=== PATIENT | female | born 1965 | race Caucasian/White ===

== ENCOUNTER 2020-07-25 15:38 | Emergency (ER) | payer MEDICAID, SELFPAY ==
[2020-07-25] VITALS (65 sets, daily range): BP systolic 80–102; BP diastolic 30–53; PULSE 77–117; RESP 13–22; TEMP 37.1; O2SAT 90–97
--- NOTE | 2020-07-25 15:30 | RT.EKG_ITS ---
APPROVED REPORT Exam: Resting ECG Patient Location: E HR:86 bpm ECG Measurements Heart Rate 86 AXIS MT 167 P 24 QRSd 110 QRS 47 QT 474 T 51 QTc 567 Conclusion Sinus rhythm...normal P axis, V-rate 60- 99 Prolonged QT interval...QTc >510mS
[2020-07-25] MEDS: Normal Saline 1,000 ML 1000 ML IV ×2 (15:50→16:26)
--- NOTE | 2020-07-25 16:00 | DI.CT_ITS ---
EXAM: CT CHEST/ABD/PEL WO CLINICAL HISTORY: jaundice, weakness, ?pleural effusion and ascites. TECHNIQUE: Imaging Protocol: Axial computed tomography images with coronal and sagittal reformatted images were created and reviewed CONTRAST MATERIAL: Intravenous: Omnipaque 350 Contrast volume:structured data in ml Oral: no COMPARISON: No exams were available for comparison FINDINGS: CHEST: Thyroid: Unremarkable as visualized. Tracheobronchial tree: Patent where visualized. Mediastinum and Angie: No dominant adenopathy or fluid collection. Pulmonary parenchyma: Mildly limited evaluation due to respiratory motion. No consolidation or domin ant measurable mass. There is scarring at the left upper lobe. Dependent changes are seen posterior ly. Pleura: No effusion or pneumothorax. Lymph nodes: Within normal limits. Aorta: Thoracic portion non-dilated. Heart: Normal size Bones: Unremarkable ABDOMEN: Liver: Cirrhotic changes. No gross evidence of a focal mass Gallbladder and biliary tract: Stones and sludge. No biliary dilatation. Pancreas: Normal density, no abnormal calcifications or inflammatory process. Spleen: Splenomegaly. Kidneys: Normal size, contour and axis. No radiodense stones or obstructive uropathy. No masses seen. Adrenal glands: No masses seen. Aorta: Abdominal portion non-dilated. Mural calcification. Lymph nodes: Within normal limits. PELVIS: Bladder: Rascon catheter Bowel: No obstruction or bowel wall thickening. Mild diverticulosis. Minimal stool. Peritoneal cavity: Small amount of fluid in the pelvis. Mild mesenteric edema. Bones: Within normal limits. No fracture. Reproductive organs: Within normal limits. Small amount of fluid in the left inguinal canal. Edema in the subcutaneous fat of the left gluteal region could represent posttraumatic changes. IMPRESSION: Cirrhosis. Splenomegaly. Cholelithiasis. No evidence of acute cholecystitis or biliary dilatation. Minimal amount of pelvic fluid. RADIATION DOSE DELIVERED: 2,164.48mGy.cm Total DLP DATA REPOSITORY: All CT scans at this facility are submitted to the National Radiology Data Registry (NRDR) Dose Index Registry (DIR) with the [employer] (ACR). RADIATION OPTIMIZATION: All CT scans at this facility use at least one of these dose optimization te chniques: automated exposure control; mA and/or kV adjustment per patient size (includes targeted exa ms where dose is matched to clinical indication); or iterative reconstruction.
--- NOTE | 2020-07-25 16:03 | ED.GENADUL_ITS ---
Discharge Plan Disposition Patient Disposition: [facility] Condition: Critical Discharge Details Chief Complaint: GenMedical Clinical Impression: Hypotension, Sepsis, Acute liver failure, Renal failure, Thrombocytopenia, Anemia Primary Care Provider: Ryan Lovell ED Provider: Rusty Frias Home Meds and New Rx's Prescriptions: No Action citalopram 20 mg Tablet 20 mg PO DAILY RF: 0 furosemide 40 mg Tablet 40 - 80 mg PO DAILY RF: 0 spironolactone 100 mg Tablet 100 mg PO DAILY RF: 0 Medical Decision Making 55 yo female with unknown medical history as she has never been here before comes in from home with general weakness worsening over several days per ems report from family. They denies any fevers, chills, falls. She arrives hypotensive with normal HR and normal o2 sat. She is noted to be jaundiced. She is sleeping when I enter the room she is sleeping and awakens to voice. She knows her name and thinks she is in [facility] and is unsure of year. She takes some time to answer most questions and says yes inapporpiately to certain questions. She denies any pain, vomit, fevers. no focal neuro deficits, does have mild asterixis of her extremities, suspect she has hepatic encephalothy, will obtain lab work and ammonia level to eval for this and given unclear hx and ams will obtain ct head to eval for sdh and also ct chest/abd/pelvis to evaluate for pna, pleural effusion, ascites. spoke with pt's family and state she has had a relapse in drinking alcohol, state a few but has been a week or so. I asked the pt and states hasn't drank in a few weeks and was drinking a lot but wouldn't expand on how much despite repeat questioning. awaiting labs and imaging, still hypotensive, will give another iv bolus and order zosyn pt in acute liver failure with lisa, is making urine. UA is consistnent with uti and has elevated procalcitonin and lactate. HAs cirrhosis on ct abdomen and minimal acites and unable to fine an area with ultrasound I could safely perform pericentesis. repains awake and talking protecting airway but repamined hypotensive so IV [place]orepi started. [place] [facility] [place] given acute liver failure, sepsis, and also thrombocytopenia and anemia which could be from the sepsis vs liver failure. Her ct also notes nonspecific subcutaneous edema in left gluteeal region and has no pain redness or swelling in this area so doubt infection at this time. pt's MAP 67 on 12mcg/min norepi infusion. [place] [facility] [place], Dr. Mcmahon is the accepting provider. Pt and family updated of very grim survival rate at this present time Differential Diagnosis Differential Diagnosis: hepatic encephalopathy, sbp, sdh, pna, ascites Medical Records Medical records reviewed: Yes I reviewed the patient's medical records. Imaging Data Radiologic Study: Attestation: I personally reviewed and interpreted this imaging study as follows: Imaging: CT Scan Radiologist's impression: no acute findings on ct head Radiologic Study #2: Attestation: I personally reviewed and interpreted this imaging study as follows: Imaging: CT Scan Radiologist's impression: IMPRESSION: 1. Cirrhosis and splenomegaly. 2. Cholelithiasis. 3. Mild colon wall thickening may be due to nonspecific colitis or underdistention. 4. Minimal ascites. 5. Small amount of air in the bladder may be due to prior instrumentation or gas-forming infection. 6. Subcutaneous edema in the left gluteal region of unclear etiology. Trauma or infection are possibilities. 7. Additional incidental/non-emergent findings, as above. Lab Data Lab results reviewed: Yes I reviewed the patient's lab results. ECG Data Attestation: I personally reviewed and interpreted this ECG (s) as follows: Prior ECG tracings: not available for review Interpretation: sinus rhythm rate of 86 pr [address] t wave ischemic findings HPI General Mode of arrival: EMS . Date/Time Provider Initiated Documentation: 07/25/20 15:46 . Limitations to Documentation: altered mental status . Information obtained by: EMS . History of Present Illness 55 year old F presents to the emergency department with the chief complaint of general weakness, described as moderate, and it has been constant. No relieving factors improve symptom(s), No exacerbating factors reported . Patient did receive the following treatments prior to arrival, none Related Data Home Medications Medication Instructions Recorded Confirmed citalopram 20 mg PO DAILY 07/25/20 07/25/20 furosemide 40 - 80 mg PO DAILY 07/25/20 07/25/20 spironolactone 100 mg PO DAILY 07/25/20 07/25/20 Allergies Allergy/AdvReac Type Severity Reaction Status Date / Time No Known Allergies Allergy Unverified 07/25/20 16:15 General Stated Complaint: GenMedical ION: 2 Review of Systems All systems reviewed & are unremarkable except as noted in HPI and below Constitutional Constitutional: Denies chills and Denies fever(s) Cardiovascular Cardiovascular: Denies chest pain and Denies dyspnea Respiratory Respiratory: Denies cough and Denies dyspnea Gastrointestinal Gastrointestinal: Denies abdominal pain, Denies nausea and Denies vomiting Musculoskeletal Musculoskeletal: Denies joint swelling Psychiatric Psychiatric: Denies depression [facility] Social History Smoking/Tobacco Use Status: Current-Occasional Alcohol Intake: never Exam Const General: no acute distress Orientation: other (eyes closed openes to voice) HENMT Head: normal to inspection Ears: external ears normal General nose exam: external nose normal Mouth: moist mucous membranes Eyes General: appearance normal, both eyes and all related structures Neck Neck: normal visual inspection Resp Effort & Inspection: normal respiratory effort and able to speak in complete sentences Cardio Rate: regular rate Skin General skin exam: no rashes or lesions noted Neuro General: patient alert Extrem General: normal to inspection Psych Mental Status: mental status grossly normal Course Vital Signs Vital signs: Vital Signs Temperature 37.1 C 07/25/20 15:38 Pulse 86 07/25/20 15:38 Respiratory Rate 07/25/20 15:38 Blood Pressure 80/33 L 07/25/20 15:38 Pulse Oximetry 96 07/25/20 15:38 Temperature 37.1 C 07/25/20 15:38 Temperature Source Skin 07/25/20 15:38 Pulse 86 07/25/20 15:38 Respiratory Rate 20 07/25/20 15:38 Blood Pressure 80/33 L 07/25/20 15:38 Blood Pressure Position Supine 07/25/20 15:38 Pulse Oximetry 96 07/25/20 15:38 Oxygen Delivery Method Room Air 07/25/20 15:38 Oxygen Flow Rate 0 07/25/20 15:38 Lab/Test Results Lab/Test Results: 07/25/20 15:47 Blood Blood Culture - Pending 07/25/20 15:47 Blood Blood Culture - Pending Critical Care Time Critical Care Time Critical Care Time: Yes Total Critical Care Time: 60 (minutes) Attestation: time spent reviewing lab work, frequent reassessments and hd monitoring in patient with hypotension requiring pressors and potential to deteriorate at any time
[2020-07-25 16:05] LABS: Absolute Basophil Count 0.01 10^3/uL (0.0-0.2); Absolute Eosinophil Count 0.02 10^3/uL (0.0-0.7); Absolute Lymphocyte Count 0.39 10^3/uL (1.2-3.4); Absolute Monocyte Count 0.92 10^3/uL (0.1-0.8); Absolute Neutrophil Count 8.18 10^3/uL (1.2-6.7); Basophils % 0.1; Eosinophils % 0.2; HGB 7.4 g/dL (11.2-15.7); Lymphocytes % 4.1; MCH 43.5 pg (27.0-33.0); MCHC 36.3 % (32.0-36.0); MPV 10.2 fL (8.0-11.0); Monocytes % 9.6; Nucleated RBC 0 %; RDW 17.2 % (11.7-14.6); RDW-SD 74.3 fL; WBC 9.62 10^3/uL (4.4-10.8)
[2020-07-25] MEDS: Normal Saline Flush 10 ML SYR IVP (16:10)
[2020-07-25 16:18] LABS: Bilirubin Large (Negative); Blood Large (Negative); Clarity Cloudy (Clear); Glucose 100 mg/dL (Negative); Leukocyte Esterase Large (Negative); pH 8.5 (5-8)
[2020-07-25 16:23] LABS: HCT 20.4 % (36.0-46.0)
[2020-07-25 16:24] LABS: INR 2.5 (0.9-1.1); PTT Activated 53.5 sec (21.0-31.4); Platelet Count 43 10^3/uL (130-400); Prothrombin Time 24.5 sec (9.3-11.0)
[2020-07-25 16:25] LABS: Diff Comment RBC Morph Reviewed; Macrocytosis 3+
[2020-07-25 16:26] LABS: Poikilocytes 1+; Polychromasia Present
[2020-07-25 16:28] LABS: Bacteria Many HPF (Negative); C & S Indicated? Yes; WBC >50 HPF (0-5)
[2020-07-25 16:48] LABS: BE (Venous) 12 mmol/L (-2-3); HCO3 (Venous) 35 mmol/L (23-28); O2 Sat (Venous) 82 %; TCO2 (Venous) 36 mmol/l (24-29); pCO2 (Venous) 42 mmHg (41-51); pH (Venous) 7.52 (7.31-7.41); pO2 (Venous) 42 mmHg
[2020-07-25 16:49] LABS: Lactate 4.1 mmol/L (0.6-1.4)
[2020-07-25 17:07] LABS: Ammonia < 10 umol/L (11-32)
[2020-07-25 17:11] LABS: Acetaminophen < 2 ug/mL (10-30)
[2020-07-25 17:14] LABS: ALT 20 U/L (14-59); AST 59 U/L (15-37); Albumin 1.9 g/dL (3.4-5.0); Alkaline Phosphatase 127 U/L (46-116); Anion Gap 11.2 mmol/L (3-11); CO2 31.8 mmol/L (21.0-32.0); Chloride 75 mmol/L (98-107); ETHANOL BLOOD 3.4 mg/dL (<3); Estimated GFR 7.52 (mL/min/1.73m2); Glucose 102 mg/dL (74-106); Lipase 146 U/L (73-393); Magnesium 2.5 mg/dL (1.8-2.4); Total Protein 6.7 g/dL (6.4-8.2)
[2020-07-25 17:20] LABS: BUN 92 mg/dL (7-18)
[2020-07-25 17:21] LABS: CREATININE 5.87 mg/dL (0.55-1.02); Potassium 2.8 mmol/L (3.5-5.1); Sodium 118 mmol/L (136-145)
[2020-07-25 17:22] LABS: Bilirubin, Direct 20.99 mg/dL (0.00-0.20); Troponin I < 0.05 ng/mL (<0.06)
[2020-07-25 17:27] LABS: Procalcitonin 4.8 ng/mL
--- NOTE | 2020-07-25 17:34 | DI.CT_ITS ---
EXAM: CT HEAD WO CLINICAL HISTORY: altered mental status. TECHNIQUE: Imaging Protocol: Axial computed tomography images with coronal and sagittal reformatted images were created and reviewed COMPARISON: No exams were available for comparison FINDINGS: Ventricles and Extra axial spaces: There is atrophy, disproportionate for the patient's age. Hemorrhage: None. Cerebral parenchyma: Minimal white matter changes. No infarct or mass Midline shift: None. Brainstem/Cerebellum: Normal. Calvarium: Normal. Visualized Paranasal sinuses/Mastoids: Clear. Soft Tissues: Unremarkable. IMPRESSION: No acute intracranial process. RADIATION DOSE DELIVERED: 742.29mGy.cm Total DLP DATA REPOSITORY: All CT scans at this facility are submitted to the National Radiology Data Registry (NRDR) Dose Index Registry (DIR) with the [employer] (ACR). RADIATION OPTIMIZATION: All CT scans at this facility use at least one of these dose optimization te chniques: automated exposure control; mA and/or kV adjustment per patient size (includes targeted exa ms where dose is matched to clinical indication); or iterative reconstruction.
[2020-07-25 17:50] LABS: Bilirubin, Total 29.4 mg/dL (0.2-1.0)
--- NOTE | 2020-07-25 17:52 | NUR.NOTE ---
pt removing pulse ox from finger resulting in low oxygen saturation levels Nursing Note:
--- NOTE | 2020-07-25 18:13 | DI.VRAD_ITS ---
PROCEDURE INFORMATION: Exam: CT Head Without Contrast Exam date and time: 07/25/2020 5:22 PM Age: 55 years old Clinical indication: Altered mental status/memory loss; Other: AMS TECHNIQUE: Imaging protocol: Computed tomography of the head without contrast. Radiation optimization: All CT scans at this facility use at least one of these dose optimization techniques: automated exposure control; mA and/or kV adjustment per patient size (includes targeted exams where dose is matched to clinical indication); or iterative reconstruction. COMPARISON: No relevant prior studies available. FINDINGS: Brain: No intracranial bleed, midline shift, or mass effect. There is mild cerebral atrophy. There is mild diffuse heterogeneity of the white matter attenuation, consistent with chronic white matter ischemic changes. Cerebral ventricles: No ventriculomegaly. Bones/joints: Unremarkable. No acute fracture. Paranasal sinuses: There is an 11 mm mucous retention cyst or polyp in the left side of the sphenoid sinus and a similar tiny focus in a right posterior ethmoid air cell. The paranasal sinuses are otherwise clear. No air-fluid levels. Mastoid air cells: Visualized mastoid air cells are well aerated. Vasculature: There is atherosclerotic calcification of the carotid siphons and distal vertebral arteries. Soft tissues: Unremarkable. IMPRESSION: No acute intracranial abnormality. Dictated and Authenticated by: Gerard Siddiqi MD. Ordering:MERCED Ojeda MD
[2020-07-25] MEDS: PIPERACILLIN/TAZO 4.5 GM in Normal Saline 100 ML IVPB (18:19)
--- NOTE | 2020-07-25 18:25 | DI.VRAD_ITS ---
PROCEDURE INFORMATION: Exam: CT Chest Without Contrast Exam date and time: 07/25/2020 4:03 PM Age: 55 years old Clinical indication: Other: Jaundice, weakness, ? pleural effusion and ascites; Patient HX: Wo due to egfr of 7. TECHNIQUE: Imaging protocol: Computed tomography of the chest without contrast. Radiation optimization: All CT scans at this facility use at least one of these dose optimization techniques: automated exposure control; mA and/or kV adjustment per patient size (includes targeted exams where dose is matched to clinical indication); or iterative reconstruction. COMPARISON: No relevant prior studies available. FINDINGS: Lungs: No focal consolidation. Mild left upper lobe scarring. Pleural space: No pleural effusion. No pneumothorax. Heart: No cardiomegaly. No pericardial effusion. Aorta: No aortic aneurysm. Lymph nodes: No pathologically enlarged lymph nodes. Bones/joints: No acute fracture. No destructive bone lesion. Soft tissues: Unremarkable. IMPRESSION: No acute abnormality identified. PROCEDURE INFORMATION: Exam: CT Abdomen And Pelvis Without Contrast Exam date and time: 07/25/2020 4:03 PM Age: 55 years old Clinical indication: Other: Jaundice, weakness, ? pleural effusion and ascites; Patient HX: Wo due to egfr of 7. TECHNIQUE: Imaging protocol: Computed tomography of the abdomen and pelvis without contrast. Radiation optimization: All CT scans at this facility use at least one of these dose optimization techniques: automated exposure control; mA and/or kV adjustment per patient size (includes targeted exams where dose is matched to clinical indication); or iterative reconstruction. COMPARISON: No relevant prior studies available. FINDINGS: Liver: Liver is lobulated, compatible with cirrhosis. Gallbladder and bile ducts: Cholelithiasis. Pancreas: Unremarkable. Spleen: The spleen is enlarged . Adrenals: Small nonspecific nodule is seen in the right adrenal gland. Kidneys and ureters: No hydronephrosis. Small nonspecific hypodensity in the right kidney. Stomach and bowel: No bowel obstruction. There is colonic diverticulosis. No evidence of acute diverticulitis. Mild diffuse colon wall thickening. Appendix: No evidence of appendicitis. Intraperitoneal space: Minimal free fluid. No free air. Vasculature: No aortic aneurysm. There are atherosclerotic calcifications of the aorta. Lymph nodes: Small, nonspecific retroperitoneal lymph nodes are seen. Urinary bladder: Rascon catheter is seen in the bladder. Small amount of air in the bladder. Reproductive: Unremarkable as visualized. Bones/joints: No acute fracture. No destructive bone lesion. Soft tissues: Small fat and fluid containing left inguinal hernia. Moderate subcutaneous edema in the left gluteal region. IMPRESSION: 1. Cirrhosis and splenomegaly. 2. Cholelithiasis. 3. Mild colon wall thickening may be due to nonspecific colitis or underdistention. 4. Minimal ascites. 5. Small amount of air in the bladder may be due to prior instrumentation or gas-forming infection. 6. Subcutaneous edema in the left gluteal region of unclear etiology. Trauma or infection are possibilities. 7. Additional incidental/non-emergent findings, as above. Dictated and Authenticated by: Tam Draper MD. Ordering:MERCED Ojeda MD
[2020-07-25] MEDS: Potassium Chloride 20 MEQ TABCR 40 MEQ PO (19:01)
[2020-07-25] MEDS: POTASSIUM CHLORIDE 20 MEQ/100 ML BAG 50 MEQ IVPB (19:02)
[2020-07-25] MEDS: Normal Saline 1,000 ML 150 ML IV (20:12)
[2020-07-25] MEDS: ALBUMIN HUMAN 25 GM/100 ML BTL IV (20:39)
--- NOTE | 2020-07-26 06:09 | NUR.NOTE ---
Addendum entered by Melanie Olivera 07/26/20 07:00: Melanie Polanco, lab called stating that all four bottles of the blood cultures were now positive. They will fax the results to [facility]. I called the unit that the patient was on so that they were aware of the fax to come. Melanie Olivera Original Note: Call from [facility], pt had + anaerobic BC, gram negative rods. Call to Yajaira at [facility] [phone]. Micro results faxed to [phone].
--- NOTE | 2020-07-27 08:37 | NUR.NOTE ---
Patient transferred to [facility] [place], urine culture final report faxed to [phone].Nursing Note:
== END 2020-07-25 21:15 | disposition short-term general hospital (02) ==
PROVIDERS: Emergency Provider Emergency Medicine; PCP Family Medicine
DX: A41.9 Sepsis, unspecified organism (principal); R65.20 Severe sepsis without septic shock; N17.9 Acute kidney failure, unspecified; K72.00 Acute and subacute hepatic failure without coma; I95.9 Hypotension, unspecified; N39.0 Urinary tract infection, site not specified; B96.20 Unspecified Escherichia coli [E. coli] as the cause of diseases classified elsewhere; D69.6 Thrombocytopenia, unspecified; D64.9 Anemia, unspecified; R53.1 Weakness
CPT/HCPCS: 36410; 36415; 51702; 71250; 80053; 82805; 83690; 84145; 86850; 86900; 86901; 87040; 87077; 93005; 96361; 96365; 96366; 96367; 99291; 70450; 74176; 80320; 80329; 81003; 81015; 82140; 82248; 83605; 83735; 84484; 85025; 85610; 85730; 87086; 87186; 93010; J2543; J3480